=== PATIENT | male | born 1965 | race Caucasian/White ===

== ENCOUNTER 2025-04-23 19:34 | Emergency (ER) | payer OTHER, SELFPAY ==
[2025-04-23 19:46] VITALS: BP 154/110
[2025-04-23] MEDS: ADACEL 0.5 ML IM (21:09)
[2025-04-23] MEDS: KEFLEX 500 MG PO (22:27)
[2025-04-23 22:28] VITALS: BP 152/88
--- NOTE | 2025-04-23 23:03 | ED.GENMED ---
History of Present Illness
General
Chief Complaint: Skin Surface Trauma
Source: patient
Exam Limitations: none
Time Seen by Provider: 04/23/25 20:42
Nursing documentation reviewed up to this point in time: agreed with
History of Present Illness
History of Present Illness:
Patient is a 59-year-old male who presents to the emergency department with laceration on his right hand. Patient states he was fixing his car at home with his son when a large piece fell on his right hand. He tried to catch it however ended up
sustaining a laceration.
Patient denies any numbness/tingling or significantly limited range of motion in right hand since injury. He has mild pain surrounding laceration.
Of note�patient reports significant injury to his right index finger many years ago where he 'nearly chopped off half my finger '. He is he had numerous surgeries' lost on artery'in that finger. That finger has been deformed since.
He is not on any oral anticoagulation.
Patient is unsure when his last tetanus shot was
Past History
Past History
ED Past Medical History: None
ED Past Surgical History: None
Social History
Tobacco: Non-smoker
Alcohol: Occasional
Personal:
Living: with family
Family History
Family History: Negative Diabetes, Hypertension, Early CAD, Asthma or Cancer
Review of Systems
Review of Systems
Allergies reviewed?: Yes
All Other Systems: ROS reviewed and negative except as documented in HPI and ROS
Phy Exam
Physical Exam
Physical Exam:
Vitals: Patient's vital signs are stable. Afebrile
General: Patient is well appearing, no acute distress
Skin: Approximately 2.5 cm jagged laceration to right palm near base of second digit.
Head: Normocephalic, atraumatic
Throat: Protecting airway
Neck: Normal ROM, no cervical spine tenderness
Cardiac: Regular rate
Pulm: No apparent respiratory distress
Abdomen: Nondistended
Extremities: Chronically deformed/edematous left index finger. Laceration at base of left second digit/palm as described above. Full range of motion in left thumb and left third, fourth, fifth digits against resistance. 2+ palpable radial pulse
and normal capillary refill in fingers of left hand.
Neuro: Grossly intact
Psychiatric: Normal affect.
Course
Orders/Labs/Results
Orders:
Orders
04/23/25 20:51
Tetanus/Diphth/Acelpertussis [Adacel] 0.5 ml IM .ONCE ONE
Hand, Right 3 View [CR Hand - Right Min 3 Views] Urgent
Comment:
Reason For Exam: laceration, crush injury
04/23/25 22:17
Cephalexin Monohydrate [Keflex] 500 mg PO NOW STA
Vital Signs
Initial and Last Documented VS:
Initial Vital Signs
Temp Pulse Resp BP Pulse Ox
98.2 F 95 18 154/110 97
04/23/25 19:46 04/23/25 19:46 04/23/25 19:46 04/23/25 19:46 04/23/25 19:46
Last Documented Vital Signs
Temp Pulse Resp BP Pulse Ox
98.2 F 76 18 152/88 98
04/23/25 19:46 04/23/25 22:28 04/23/25 22:28 04/23/25 22:28 04/23/25 23:10
Procedures
Laceration Closure
Right Palmar Hand:
Status of Wound: dirty
Size of Wound in cm: 2.5
Description of Wound Edges: ragged
Preparation: cleaned with saline and cleaned with Betadine
Anesthesia: 1% Lidocaine
Revision/Debridement: routine- no revision
Wound exploration: explored to base- no FB
Type of Closure: single layer closure and interrupted sutures
Skin Closure Material: 4-0 nylon
Number of sutures: 5
MDM/Problems Addressed
Differential Diagnosis Includes:
Not limited to: Laceration, abrasion, tendon injury, contusion, fracture, etc.
MDM/Problems Addressed:
59-year-old male presenting with laceration to his right palm after what he describes as a minor crush type injury while fixing a car. Patient had severe injury to right index finger many years ago, which resulted in chronic deformity/swelling and
loss of sensation. No additional numbness/tingling in hand/digits from baseline. Unknown last tetanus shot
On exam�patient well-appearing. He does have an approximate 2.5 cm ragged/flap-like laceration of the right palm near the base digit. No evidence of tendon or nerve involvement. This will require primary closure with sutures. Given crush type
injury�will obtain x-ray of right hand.
Verbal consent obtained by patient. Anesthetized with 1% lidocaine with epinephrine. Wound thoroughly irrigated with normal saline scrubbed with iodine. Laceration closed with five 4-0 nylon simple interrupted sutures with good skin approximation
and hemostasis obtained. Patient tolerated procedure well.
X-ray right hand shows chronic deformity right index finger from prior injury as well as possible nondisplaced fracture proximal phalanx of right index finger. Patient does have some edema in this area, however full to differentiate from prior
injury and only has minimal tenderness. Given known crush injury and concern for new nondisplaced fracture just patient was placed in a foam finger splint for immobilization. Wound was also dressed.
At this point�feel stable for discharge home with primary care follow-up. Discussed wound care instructions at length, as well. Suture removal in 10 to 14 days. Given concern for dirty mechanism�I did start patient on prophylactic course of
Keflex. Return precautions discussed. Patient comfortable with plan.
Chronic conditions affecting care:
Prior injury to left index finger requiring surgical manage
Acute Exacerbation and/or Progression of Chronic Illness:
N/A
*Radiology
Radiology exam reviewed: radiology read reviewed
*Pulse Oximetry
SaO2: 98
Oxygen Mode of Delivery: Room air
Patient hypoxic: no
*EKG
Interpreted by ED Provider?: NA
*Religious Educator Interpretation
Rate: Religious Educator- N/A
*Critical Care Note
Total Time (30-74mins, 75-104mins- exclusive of procedures): Not Applicable
ED Attending Note
-
Portions of this chart may have been created with voice recognition software.� Occasional wrong word or��sound alike� substitutions may have occurred due to the inherent limitations of voice recognition software.
Discharge Plan
Departure
Patient Disposition: Home (Routine Discharge)
Date of Disposition: 04/23/25
Time of Disposition: 22:13
Patient with high blood pressure during this ER visit?: Yes
Condition: Good
Covid-19: Not Applicable
Discharge Problem:
Laceration of right palm
Instructions: Wound Care (DC), Laceration Repair With Stitches (DC), BLOOD PRESSURE
Prescriptions:
New
cephalexin 500 mg capsule
500 mg PO QID 5 Days Qty: 20 0RF
Referrals:
Melania Preston DO [Family Provider, Family Practice] - Follow up in 10 days
Activity Restrictions/Additional Instructions:
RETURN TO THE EMERGENCY DEPARTMENT WITH ANY NUMBNESS/TINGLING IN RIGHT HAND OR FINGERS OR ANY SIGNS OF INFECTION INCLUDING FEVER, CHILLS, SIGNIFICANT PAIN/SWELLING/REDNESS AROUND LACERATION, PUS DRAINING FROM WOUND, RED STREAKING AWAY FROM WOUND,
WORSENING CURRENT SYMPTOMS, OR ANY OTHER CONCERNS
- As discussed�your laceration was closed with 5 stitches today in the emergency department. These should be removed in 10 to 14 days. This can get your primary care, urgent care, or emergency department.
- Please keep wound clean and dry. Wash gently with soap and water daily and keep covered with topical antibiotic until sutures are removed. Limit range of motion in right hand to prevent popping a suture.
- Antibiotic as an send your pharmacy to cover for possible infection given contaminated hand. Please take this 4 times a day for the next 5 days.
- You can take Tylenol and/or Motrin as needed for pain.
Follow-up with your primary care provider for further evaluation/management to ensure that your symptoms are improved
Interventions
Interventions:
*Risk Screen - Suicide Last Done: 04/23/25 19:46
*Neglect/Abuse Screening Last Done: 04/23/25 19:46
*Nursing Disposition Last Done: 04/23/25 22:32
ED-Skin Assessment Last Done: 04/23/25 21:12
Discharge Date and Time
Discharge Date/Time: 04/23/25 22:33
Print Language: THAI
== END 2025-04-23 22:33 | disposition home or self-care (01) ==
LOC: EMR 19:34
PROVIDERS: EMERGENCY PHYSICIAN Emergency Medicine; FAMILY PHYSICIAN Family Medicine
DX: S61.411A Laceration without foreign body of right hand, initial encounter (principal); W20.8XXA Other cause of strike by thrown, projected or falling object, initial encounter; Y93.89 Activity, other specified; Z23 Encounter for immunization; R03.0 Elevated blood-pressure reading, without diagnosis of hypertension
CPT/HCPCS: 12041; 99283; 90471; 73130; 90715

== ENCOUNTER 2025-05-31 07:40 | Outpatient (RCR) | payer OTHER, SELFPAY | END 2025-05-31 23:59 | disposition home or self-care (01) | LOC: ROT 07:40 | PROVIDERS: ATTENDING PHYSICIAN Family Medicine | DX: S69.91XD Unspecified injury of right wrist, hand and finger(s), subsequent encounter (principal); Z73.6 Limitation of activities due to disability; W20.8XXD Other cause of strike by thrown, projected or falling object, subsequent encounter | CPT/HCPCS: 97166; 97535 ==